=== PATIENT | male | born 1985 | race African-American/Black ===

== ENCOUNTER 2017-12-30 06:05 | Emergency (ER) | payer MEDICAID ==
[~2017-12-30] VITALS: Ht 182.9 cm; Wt 87.0 kg
[2017-12-30 06:25] VITALS: BP 160/98
== END 2017-12-30 09:27 | disposition left against medical advice (07) ==
LOC: ER 06:05
DX: Z53.21 Procedure and treatment not carried out due to patient leaving prior to being seen by health care provider (principal)